=== PATIENT | female | born 1985 | race Two or more races ===

== ENCOUNTER 2023-01-29 10:39 | Outpatient (CLI) | payer BC, SELFPAY | END 2023-01-29 10:40 | disposition home or self-care (01) | PROVIDERS: Visit Provider Registered Nurse | DX: Z01.419 Encounter for gynecological examination (general) (routine) without abnormal findings (principal); N92.0 Excessive and frequent menstruation with regular cycle; N64.52 Nipple discharge; E66.9 Obesity, unspecified; Z13.1 Encounter for screening for diabetes mellitus | CPT/HCPCS: 84146; 84443 ==

== ENCOUNTER 2023-02-09 17:00 | Outpatient (CLI) | payer BC, SELFPAY ==
--- NOTE | 2023-02-09 17:00 | US_ITS ---
Patient: TONIE RUSSO Facility:?[facility] Patient ID:?[id number] Site Patient ID:?[id number] Site :?1985 Study:?US-Pelvis TA/TV-02/09/2023 6:07:15 PM Ordering Physician:?LUDWIG BLANCHARD Final Report: CLINICAL HISTORY: Excessive and frequent menstruation TECHNIQUE: Real time, gayle scale images were acquired of the pelvis using a transabdominal and transvaginal approach. Color Doppler analysis was performed of the ovaries. FINDINGS: The uterus measures 9.2 x 4.2 x 4.7 centimeters endometrium measures 9 millimeters. Right ovary measures 3.3 x 2.4 x 2.4 centimeters. Left ovary measures 3.4 x 1.3 x 1.4 centimeters. section, with fluid or hypoechoic scarring near the lower uterine segment. IMPRESSION: 1. Endometrium measures 9 millimeter. scar with hypoechoic fluid or scarring near the lower uterine segment Dictated by Kate Fritz MD @ 02/10/2023 7:16:33 AM Signed by:?Kate Fritz MD @02/10/2023 7:16:33 AM (Electronic Signature)
== END 2023-02-09 17:01 | disposition home or self-care (01) ==
LOC: US 17:01
PROVIDERS: Visit Provider Registered Nurse
DX: N92.0 Excessive and frequent menstruation with regular cycle (principal); R93.89 Abnormal findings on diagnostic imaging of other specified body structures
CPT/HCPCS: 76830; 76856

== ENCOUNTER 2023-12-04 08:00 | Outpatient (CLI) | payer BC, SELFPAY | END 2023-12-04 08:01 | disposition home or self-care (01) | PROVIDERS: Visit Provider Registered Nurse | DX: N97.9 Female infertility, unspecified (principal); F90.9 Attention-deficit hyperactivity disorder, unspecified type | CPT/HCPCS: 82670; 83001; 84144; 84146; 84443 ==

== ENCOUNTER 2023-12-23 08:05 | Outpatient (CLI) | payer BC, SELFPAY | END 2023-12-23 08:06 | disposition home or self-care (01) | LOC: NFLDREF 12-25 09:06 | PROVIDERS: Visit Provider Registered Nurse | DX: N97.9 Female infertility, unspecified (principal) | CPT/HCPCS: 83520; 84144 ==

== ENCOUNTER 2024-01-08 08:48 | Outpatient (CLI) | payer BC, SELFPAY ==
--- NOTE | 2024-01-08 09:15 | CRLHL7_ITS ---
For Patients: As a result of the Century Cures Act, medical imaging exams and procedure reports are released immediately into your electronic medical record. You may view this report before your referring provider. If you have questions, please contact your health care provider. Indication: Infertility Technique: Routine hysterosalpingogram performed. Fluoroscopic time 37 seconds. IMPRESSION: Normal patency of the fallopian tubes. No endometrial filling defect. Normal exam. Dictated by Dawit Mckoy MD @ 01/08/2024 3:05:21 PM (Electronically Signed)
--- NOTE | 2024-01-08 09:43 | PM.PROC ---
Procedure Note Time Seen by Provider: 09:43 Date Seen: 01/08/24 Date of procedure: 01/08/24 Will [facility] bill your pro fee for this procedure?: Yes Procedure: PREPROCEDURE DIAGNOSIS: Infertility POSTPROCEDURE DIAGNOSIS: 1. Infertility 2. Patent fallopian tubes bilaterally. NAME OF PROCEDURE: Hysterosalpingogram. ANESTHESIA: None. COMPLICATIONS: None. PROCEDURE: After obtaining verbal consent, the patient was placed in the dorsal lithotomy position on the x-ray table. An open-sided bivalve speculum was introduced into the vagina and the cervix easily visualized. The cervix and vagina were then prepped with Betadine. Anterior lip of the cervix was grasped with a single-tooth tenaculum for traction. Os binder/cervical dilator used: No. A balloon tipped double-lumen catheter was then gently inserted through the cervical opening into the uterine cavity to the level of the fundus. The balloon was insufflated with 3 mL of air. The tenaculum and speculum were removed. The patient was repositioned in the supine position, covered, and the radiologist was called to the room. A hysterosalpingogram was then performed. A total of 6 cc of Optiray 300 water soluble contrast dye was injected through the double-lumen catheter under moderate pressure. There was immediate fill of the uterine cavity to the cornua and immediate fill of both fallopian tubes with free spillage of dye from both sides. The balloon was deflated. The catheter was removed. The patient tolerated the procedure well, though she did have moderate cramping discomfort during and just after the procedure. She was discharged to home in stable condition and make an appointment with her physician to review all of her lab results and procedure results.
== END 2024-01-08 08:49 | disposition home or self-care (01) ==
LOC: RAD 08:49
PROVIDERS: Visit Provider Obstetrics & Gynecology
DX: N97.9 Female infertility, unspecified (principal)
CPT/HCPCS: 58340; 74740; A4649; Q9967

== ENCOUNTER 2024-02-17 10:51 | Outpatient (CLI) | payer BC, SELFPAY | END 2024-02-17 10:52 | disposition home or self-care (01) | LOC: NFLDREF 10:51 | PROVIDERS: Visit Provider Registered Nurse | DX: Z13.220 Encounter for screening for lipoid disorders (principal); R30.0 Dysuria | CPT/HCPCS: 80061; 87086; 87624 ==

== ENCOUNTER 2025-03-14 09:58 | Outpatient (CLI) | payer BC, SELFPAY | END 2025-03-14 09:59 | disposition home or self-care (01) | LOC: NFLDREF 10:00 | PROVIDERS: Visit Provider Obstetrics & Gynecology | DX: O03.9 Complete or unspecified spontaneous abortion without complication (principal) | CPT/HCPCS: 84702 ==

== ENCOUNTER 2025-03-22 14:36 | Outpatient (CLI) | payer BC, SELFPAY | END 2025-03-22 14:37 | disposition home or self-care (01) | LOC: NFLDREF 03-27 08:08 | PROVIDERS: Visit Provider Obstetrics & Gynecology | DX: O03.9 Complete or unspecified spontaneous abortion without complication (principal) | CPT/HCPCS: 84702 ==

== ENCOUNTER 2025-05-29 20:54 | Emergency (ER) | payer BC, SELFPAY ==
--- OUTSIDE RECORDS SUMMARY | 2025-05-29 20:57 | XMS_ITS | Clinical Summary ---
Author Organization [employer] [facility] Address [address] [place] [address] Care Team Providers Care Stuffer Name Role Phone Levon Blancas Primary Care Provider [phone] Allergies No known active allergies Medications MedicationSigDispense QuantityRefillsLast FilledStart DateEnd DateStatus multivitamin therapeutic (THERAGRAN; ONCOVITE) tablet Take 1 Tablet by mouth once daily.Active levothyroxine 50 mcg tablet TAKE 1 TABLET BY MOUTH 30 MINUTES BEFORE EATING EVERY GDBBINW44/16/2025Active lisdexamfetamine (Vyvanse) 20 mg capsule Indications:Attention deficit disorder (ADD) without hyperactivityTake 1 Capsule (20 mg) by mouth once daily. 30 Capsule 5Active lisdexamfetamine (VYVANSE) 20 mg capsule Indications:Attention deficit disorder (ADD) without hyperactivityTake 1 Capsule (20 mg) by mouth once daily in the morning. 30 Capsule 5Active lisdexamfetamine (VYVANSE) 20 mg capsule Indications:Attention deficit disorder (ADD) without hyperactivityTake 1 Capsule (20 mg) by mouth once daily in the morning. 30 Capsule 5Active Active Problems ProblemNoted DateDiagnosed DateFibroid gxakqb7401/07/2017Recurrent UTI01/07/2017 Haploibdrhit98/21/2016 Encounters DateTypeDepartmentCare MfvsYevppdysjyv45/20/2025Orders Only [facility] Scanner <No scans attached>04/03/2025Orders Only [facility] Scanner <No scans attached>04/03/2025Orders Only [facility] Scanner 1 scan: (1-Ord) INCOMING RECORDS-LABS, AMBULATORY CLINICS, 51 Orders Only [facility] Scanner 1 scan: (1-Ord) INCOMING RECORDS-, [facility] , 04/03/2025from Last 3 Months Immunizations ImmunizationAdministration DatesNext DueINFLUENZA, IIV3 PF (AGE >= 6 MO) 03/06/2014,03/31/2013,03/24/2012Influenza, IIV3 (Age >=3 years)03/09/2019 Influenza, VZH700/01/2023Influenza,CCIIV4 PRESERV FREE03/10/2022Tdap107/23/2020, 08/23/2019,08/25/2014Typhoid (injectable)04/08/2019 Family History Medical HistoryRelationNameCommentsHeart DiseaseFatherHypertensionFather HyperlipidemiaMotherAnesthesia Malignant HyperthermiaNo Family HistoryBlood DiseaseNo Family HistoryRelationNameStatusCommentsFatherAliveMotherAlive Social History Tobacco UseTypesPacks/DayYears UsedDateSmoking Tobacco: NeverPassive Smoke Exposure: NeverSmokeless Tobacco: Never Tobacco Cessation:Counseling Given: Yes Alcohol UseStandard Drinks/WeekCommentsYes0 (1 standard drink = 0.6 oz pure alcohol)occPHQ-2AnswerDate RecordedPHQ-2 TOTAL USOMF747Social ConnectionsAnswerDate RecordedDo you often feel lonely or isolated from those around you?Financial Resource StrainAnswerDate RecordedDifficulty of Paying Living Zcisaqqi478/29/2025Difficulty of Paying Living ExpensesNot on file 11/10/2024Food InsecurityAnswerDate RecordedDo you worry your food will run out before you are able to buy more?Transportation NeedsAnswerDate RecordedDoes lack of transportation keep you from medical appointments?1 11/10/2024Does lack of transportation keep you from work, meetings or getting things that you need?Housing StabilityAnswerDate RecordedWhat is your housing situation today?UtilitiesAnswerDate RecordedDo you have trouble paying for utilities (for example, heat, electricity, water, phone)?1 11/10/2024CommentsNoSex and Gender InformationValueDate RecordedSex Assigned at BirthNot on fileLegal OtfUcxqal79/02/2019 4:03 PM CDTGender Identity Not on fileSexual OrientationNot on fileOccupationIndustryJob Start DateJob End DateRNNot on fileNot on fileNot on file Last Filed Vital Signs Vital SignReadingTime TakenCommentsBlood Tngjnfic800/85011/10/2024 9:29 AM CDT Olkvv863011/10/2024 9:29 AM PXYMeqcfylekey14.7 ??C (98 ??F)12/24/2023 5:41 PM CDT Respiratory Cnks814812/24/2023 5:41 PM CDTOxygen Gmocpviugi281%11/10/2024 9:29 AM CDTInhaled Oxygen Concentration--Xvkdwz17.8 kg (165 lb)11/10/2024 9:29 AM CDT Squxgm490.4 cm (5')11/10/2024 9:29 AM CDTBody Mass Index32.22011/10/2024 9:29 AM CDT Plan of Treatment Health MaintenanceDue DateLast DoneCommentsHIV for age 15-Hepatitis C screening for age 18-Hepatitis B series for 19+ (1 of 3 - 19+ 3- dose series)08/23/2006HPV series for age 9-45 (1 - 3-dose SCDM series)08/23/2014 COVID-19 vaccine series ( - 2024- season)2025Influenza Vaccine (#1) 509/01/2023, 03/10/2022, 03/09/2019, Additional history existsBMI (ht and wt on same day) for age 18+, 04/07/2023, 10/31/2021, Additional history existsDepression screening for age 12+, 11/04/2024, 05/13/2024, Additional history existsPap test for age 21-65 709/09/2023, 02/17/2024, 03/15/2019, Additional history existsTetanus pknamho18/08/975726/01/2021, 08/23/2019, 08/25/2014Pneumococcal series for age 6-49Aged OutNo longer eligible based on patient's age to complete this topic Procedures Procedure NamePriorityDate/TimeAssociated DiagnosisCommentsSCAN CORRESP- LABORATORY YUMVDIF6404/03/2025 12:00 AM CDT SCAN CORRESP-LABORATORY WTEHYSV5504/03/2025 12:00 AM CDT SCAN CORRESP-LABORATORY TKKYNML2304/03/2025 12:00 AM CDT SCAN CORRESP-NLNDIIM7504/03/2025 12:00 AM CDT HPV HIGH CYPVDveefmz48/04/2024 10:55 AM CDT from Last 3 Months or Most Recently Relevant to Health Maintenance Results * SCAN CORRESP-LABORATORY RESULTS (04/03/2025 12:00 AM CDT) Only the most recent of3 resultswithin the time period is included. Narrative Authorizing ProviderResult TypeResult StatusScannerOTHERFinal Result * SCAN CORRESP-IMAGING (04/03/2025 12:00 AM CDT)Anatomical RegionLaterality ModalityOther Narrative Authorizing ProviderResult TypeResult StatusScannerOTHERFinal Result * HPV HIGH RISK (02/17/2024 10:55 AM CDT)ComponentValueRef RangeTest Method Analysis TimePerformed AtPathologist SignatureTYPE 16NegativeNegative 02/23/2024 11:26 AM CDF[facility]-CENTRAL LABORATORYTYPE 18 TmestqobWzasprpw85/10/2024 11:26 AM CDTALPH[facility] LAB[facility]-CENTRAL LABORATORYOTHER HIGH RISK JKZFRClvcovfqVpcofymk04/10/2024 11:26 AM CDFORT [facility] LABORATORYCENTRAL LABORATORYSpecimen (Source)Anatomical Location / LateralityCollection Method / VolumeCollection TimeReceived TimeOther (Cervical)02/17/2024 10:55 AM CDT02/19/2024 5:04 PM CDT Narrative [facility]-CENTRAL LABORATORY - 02/23/2024 11:26 AM CDT HPV types 16, 18, 31, 33, 35, 39, 45, 51, 52, 56, 58, 59, 66 and 68 DNA were undetectable or below the pre-set threshold. Methodology: Abbey Xin 4800 HPV Test Authorizing ProviderResult TypeResult StatusChabby Brown NPMICROBIOLOGY Final ResultPerforming OrganizationAddressCity/State/ZIP CodePhone Number [facility] [address] [place] [phone], from Last 3 Months or Most Recently Relevant to Health Maintenance Insurance Care Teams Team MemberRelationshipSpecialtyStart DateEnd Date Levon [place] [address] PCP - GeneralFamily Practice11/10/24
--- OUTSIDE RECORDS SUMMARY | 2025-05-29 20:57 | XMS_ITS | Clinical Summary ---
Author Organization [facility] [place] Address [address] [place] [address] Care Team Providers Care Director Experimental Medicine Name Role Phone Jonathan, [facility] Gambier Primary Care Provider Allergies No known active allergies Medications MedicationSigDispense QuantityRefillsLast FilledStart DateEnd DateStatus multivitamin, therapeutic (THERA-VIT) TABS tablet Take 1 tablet by mouth dailyActive nitroFURantoin, macrocrystal-monohydrate, (MACROBID) 100 MG capsule Indications:Postcoital UTITake one pill after sexual intercourse to prevent UTI 30 capsule Active levonorgestrel-ethinyl estradiol (FALMINA) 0.1-20 MG-MCG tablet Indications:Encounter for initial prescription of contraceptive pillsTake 1 tablet by mouth daily Please schedule an office visit for further refills. 84 tablet 11/16/2018Active Active Problems ProblemNoted DateDiagnosed DateRecurrent UTI01/07/2017Fibroid sxgizx3201/07/2017 Fynehgmpdkog70/21/2016 Resolved Problems ProblemNoted DateDiagnosed DateResolved DateThoracolumbar back pain01/19/2015 03/09/2015 Immunizations ImmunizationAdministration DatesNext DueInfluenza (IIV3) PF03/06/2014,03/31/2013 ,03/24/2012TDAP (Adacel,Boostrix)08/25/2014TDAP Vaccine (Adacel)08/25/2014 Family History Medical HistoryRelationCommentsHypertensionFatherUnknown/AdoptedFatherRelation StatusCommentsFather Social History Tobacco UseTypesPacks/DayYears UsedDateSmoking Tobacco: NeverSmokeless Tobacco: NeverAlcohol UseStandard Drinks/WeekCommentsYes0 (1 standard drink = 0.6 oz pure alcohol)socialPHQ-2AnswerDate RecordedPHQ-2 Jmkib226Adolescent Education AnswerDate RecordedGetting School Help NeededNot on file3 CommentsUnknownSex and Gender InformationValueDate RecordedSex Assigned at Not on fileLegal MryUaorpp58/30/2015 8:38 AM CDTGender IdentityNot on fileSexual OrientationNot on file Last Filed Vital Signs Vital SignReadingTime TakenCommentsBlood Fpkgnnai599/8511/02/2023 11:30 AM HORTICULTURAL FARM MANAGER Lefkv6578 11:30 AM DPUChwkmnzcjfh08.1 ??C (97 ??F)04/23/2023 9:22 AM HORTICULTURAL FARM MANAGER Respiratory Dewe853106/23/2022 9:22 AM CSTOxygen Pbjggalkde319%04/23/2023 11:30 AM CSTInhaled Oxygen Concentration--Yqxzyt01.1 kg (170 lb)01/03/2021 5:14 AM CDT Wtonts576.4 cm (5')02/04/2018 7:51 AM CDTBody Mass Index33. 7:51 AM CDT Plan of Treatment Health MaintenanceDue DateLast DoneCommentsADVANCE CARE QVZURQJW72/11/1988ANNUAL REVIEW OF HM RYDVMH06 1987HIV LAJVFSOVM61/11/2003HEPATITIS B VACCINE (1 of 3 - 19+ 3-dose series)08/23/2006PAP01/07/, 08/02/2013YEARLY PREVENTIVE VISIT, 01/07/2017, 08/25/2014PHQ-2 (once per calendar year), 01/07/2017, 12/31/2016COVID-19 VACCINE ( - 2024- season)/09/2020, 06/27/2020INFLUENZA VACCINE (#1)2025 02/20/2023, 03/10/2022, 02/28/2021, Additional history existsDIABETES SCREENING 611/02/2023, 02/07/2018, 07/31/2017, Additional history exists DTAP/TDAP/TD VACCINE (5 - Td or Tdap)112/01/2021, 08/23/2019, 08/25/2014, Additional history existsZOSTER VACCINE (1 of 2)08/23/2037HEPATITIS C UUCRAWTZCDrkbdqyxd61/26/2016HPV VACCINE (No Doses Required)CompletedMENINGITIS VACCINEAged OutNo longer eligible based on patient's age to complete this topic PNEUMOCOCCAL VACCINE: PEDIATRICS (0 to 5 YEARS) AND AT-RISK PATIENTS (6 to 49 YEARS)Aged OutNo longer eligible based on patient's age to complete this topic Procedures Procedure NamePriorityDate/TimeAssociated DiagnosisCommentsBASIC METABOLIC PANEL STAT106/23/2022 9:28 AM HORTICULTURAL FARM MANAGER PAP IMAGED THIN LAYER WMCUNWZpzkwfv02/26/2017 11:00 AM CDT Routine history and physical examination of adult Screen for STD (sexually transmitted disease) HEPATITIS C PIKOWRMVVxdvkke09/26/2016 11:59 AM CDT Contact with and (suspected) exposure to viral hepatitis from Last 3 Months or Most Recently Relevant to Health Maintenance Results * (ABNORMAL) Basic metabolic panel (04/23/2023 9:28 AM HORTICULTURAL FARM MANAGER)ComponentValueRef RangeTest MethodAnalysis TimePerformed AtPathologist WlkxqawshPkmcav749749 - 145 mmol/L106/23/2022 10:11 AM [facility] LABORATORYComment:Reference intervals for this test were updated on 03/10/2023 to more accurately reflect our healthy population. There may be differences in the flagging of prior results with similar values performedwith this method. Interpretation of those prior results can be made in the context of the updated reference intervals. Potassium3.73.4 - 5.3 mmol/L106/23/2022 10:11 AM [facility] POGFSHQJTVRxdfthea22498 - 107 mmol/L106/23/2022 10:11 AM [facility] LABORATORYCarbon Dioxide (CO2)2322 - 29 mmol/L106/23/2022 10:11 AM [facility] LABORATORYAnion Cyq113 - 15 mmol/L106/23/2022 10:11 AM [facility] LABORATORYUrea Nitrogen9.36.0 - 20.0 mg/dL04/23/2023 10:11 AM [facility] LABORATORYCreatinine0.690.51 - 0.95 mg/dL04/23/2023 10:11 AM [facility] LABORATORYGFR Estimate>90>60 mL/min/1.09o47404/23/2023 10:11 AM [facility] Calcium9.08.6 - 10.0 mg/dL04/23/2023 10:11 AM [facility] QLWTWGWUPRIesybwk996(H)70 - 99 mg/dL04/23/2023 10:11 AM [facility] LABORATORYSpecimen (Source)Anatomical Location / LateralityCollection Method / VolumeCollection TimeReceived Time BloodBLOOD SPECIMEN / UnknownVenipuncture / Jdljqoy7704/23/2023 9:28 AM HORTICULTURAL FARM MANAGER 04/23/2023 9:35 AM HORTICULTURAL FARM MANAGER Narrative Authorizing ProviderResult TypeResult StatusPaul Abe Sanchez MDLAB - BLOOD ORDERABLESFinal ResultPerforming OrganizationAddressCity/State/ZIP CodePhone Number [facility] [address] [facility] (1st floor, no room number) [place] [address], [facility] [phone] * Pap imaged thin layer screen reflex to HPV if ASCUS - recommend age 25 - 29 (01/07/2017 11:00 AM CDT)ComponentValueRef RangeTest MethodAnalysis Time Performed AtPathologist SignaturePAPNILCOPATHCopath Report Patient Name: NAYELI CHEATHAM MR#: [id number] Specimen #: [id number] Collected: 01/07/2017 Received: 01/08/2017 Reported: 01/09/2017 15:20 Ordering Phy(s): ERIKA SAM For improved result formatting, select 'View Enhanced Report Format' under Linked Documents section. SPECIMEN/STAIN PROCESS: Pap imaged thin layer prep screening (Surepath, FocalPoint with guided screening) ? Pap-Cyto x 1, Pap with reflex to HPV if ASCUS x 1 SOURCE: Cervical, endocervical Pap imaged thin layer prep screening (Surepath, FocalPoint with guided screening) SPECIMEN ADEQUACY: Satisfactory for evaluation. -Transformation zone component present. CYTOLOGIC INTERPRETATION: Negative for intraepithelial lesion or malignancy Electronically signed out by: CHETAN Hess (ASCP) Processed and screened at [facility], [facility] CLINICAL HISTORY: LMP: 12/26/2016 Papanicolaou Test Limitations: ??Cervical cytology is a screening test with limited sensitivity; regular screening is critical for cancer prevention; Pap tests are primarily effective for the diagnosis/prevention of squamous cell carcinoma, not adenocarcinomas or other cancers. TESTING LAB LOCATION: [address] ??[address] COLLECTION SITE: Client: ??[facility] Location: CRFP (R)COPATHSpecimen (Source)Anatomical Location / Laterality Collection Method / VolumeCollection TimeReceived TimeCytologic material (specimen)01/07/2017 11:00 AM CDT01/08/2017 9:11 AM CDT Narrative Authorizing ProviderResult TypeResult StatusErika MACK - OPTIME CLINICAL SPECIMENFinal ResultPerforming OrganizationAddressCity/State/ZIP Code Phone Number [facility] * Hepatitis C antibody (02/08/2016 11:59 AM CDT)ComponentValueRef RangeTest MethodAnalysis TimePerformed AtPathologist SignatureHepatitis C Antibody Nonreactive Assay performance characteristics have not been established for newborns, infants, and children NRUNVERM[facility] E[facility] BANKSpecimen (Source)Anatomical Location / LateralityCollection Method / VolumeCollection TimeReceived TimeBlood specimen (specimen)02/08/2016 11:59 AM CDT02/08/2016 12:01 PM CDT Narrative Authorizing ProviderResult TypeResult StatusPaty MACK - BLOOD ORDERABLESFinal ResultPerforming OrganizationAddressCity/State/ZIP Code Phone Number [facility] [address] [place], [place] [address] from Last 3 Months or Most Recently Relevant to Health Maintenance Insurance Care Teams Team MemberRelationshipSpecialtyStart [address] [address] PCP - Lkwbnbf32/9/23
--- OUTSIDE RECORDS SUMMARY | 2025-05-29 20:57 | XMS_ITS | Clinical Summary ---
Author Organization [facility] Address [address] [place] [address] Care Team Providers Care Caster Investment Casting Name Role Phone Unavailable Primary Care Provider Unavailabl e Source Comments You are receiving this document as you are listed as the primary care provider,follow-up provider, or the patient has been referred to you for consultation.This is in compliance with the Medicare andGrant Hospitalcaid EHR Incentive Program,which states Providers who transition their patient to another setting of careor provider of care or refers their patient to another provider of care shouldprovide summary care record for each transition of care or referral. [facility] Allergies No known active allergies Medications MedicationSigDispense QuantityRefillsLast FilledStart DateEnd DateStatus ibuprofen (MOTRIN) 200 MG tablet Take 1-2 Tablets (200-400 mg) by mouth every 4 hours as needed for Pain.Active acetaminophen (TYLENOL) 325 MG tablet Take 325-650 mg by mouth every 4 hours as needed for Pain.Active methylPREDNISolone (MEDROL 21 TABLET DOSEPACK) 4 MG tablet Indications:Complex tear of lateral meniscus of left knee as current injury, initial encounterTake 6 pills day 1, 5 pills day 2, 4 pills day 3, 3 pills day 4, 2 pill day 5, 1 pill day 6 21 Tablet 08/17/2019Active Additional Information Patient not taking.Reported on 08/26/2022 Norethindrone, Contraceptive, (MICRONOR) 0.35 MG tablet Take 1 Tablet (0.35 mg) by mouth once.07/07/2022ctive Social History Tobacco UseTypesPacks/DayYears UsedDateSmoking Tobacco: Never Assessed CommentsNoSex and Gender InformationValueDate RecordedSex Assigned at BirthNot on fileLegal XbbZbbnnd84/05/2020 4:04 PM CSTGender IdentityNot on fileSexual OrientationNot on file Last Filed Vital Signs Vital SignReadingTime TakenCommentsBlood Arrqvodi353/9308/26/2022 8:22 AM CDT Mueua256708/26/2022 8:22 AM OPIRpncwhromnh26.8 ??C (98.2 ??F)08/26/2022 8:22 AM CDTRespiratory Seyj859508/26/2022 8:22 AM CDTOxygen Ydelbuxilx864%08/26/2022 8:22 AM CDTInhaled Oxygen Concentration--Blilmc23 kg (150 lb)07/25/2019 8:51 AM FAMILY HEALTH NURSE PRACTITIONER Tgekgo804.4 cm (5')07/25/2019 8:51 AM CSTBody Mass Index29.29007/25/2019 8:51 AM FAMILY HEALTH NURSE PRACTITIONER Plan of Treatment Health MaintenanceDue DateLast DoneCommentsCervical Cancer Screening Due 1987Hep C Screening (Preventive Services)1987HIV Screening (Preventive Services)2003Adult Preventive Visit08/23/2005HepB Vaccine (1) 08/23/2006COVID-19 Vaccine (1 - 2024- season)2025Influenza Vaccine (#1) 509/, 03/09/2019DTaP/Tdap/Td Vaccine (4 - Tdap)05/22/2031 05/22/2021, 08/23/2019, 08/25/2014Zoster/Shingles Vaccine (1 of 2)08/23/2037HPV Vaccine (No Doses Required)CompletedHepA VaccineAged OutNo longer eligible based on patient's age to complete this topicHib VaccineAged OutNo longer eligible based on patient's age to complete this topicIPV (Polio) VaccineAged OutNo longer eligible based on patient's age to complete this topicMCV4 VaccineAged OutNo longer eligible based on patient's age to complete this topicMeningococcal B VaccineAged OutNo longer eligible based on patient's age to complete this topicPneumococcal VaccineAged OutNo longer eligible based on patient's age to complete [place] [address]
[2025-05-29 21:07] VITALS: BP 146/84; PULSE 74; RESP 18; TEMP 36.7; O2SAT 100; BMI 33.4
--- NOTE | 2025-05-29 21:57 | CRLHL7_ITS ---
For Patients: As a result of the Century Cures Act, medical imaging exams and procedure reports are released immediately into your electronic medical record. You may view this report before your referring provider. If you have questions, please contact your health care provider. INDICATION: Right lower quadrant Pain TECHNIQUE: Transabdominal scanning with a linear transducer and graded compression was performed in the right lower quadrant. COMPARISON: None FINDINGS: The appendix cannot be visualized due to overlying bowel gas. No fluid collections or ascites is seen in the right lower quadrant. IMPRESSION: 1. The appendix cannot be visualized by sonography. Dictated by: Reymundo Oconnell MD @ 05/29/2025 23:58:47 (Electronically Signed)
--- NOTE | 2025-05-29 21:57 | CRLHL7_ITS ---
For Patients: As a result of the Century Cures Act, medical imaging exams and procedure reports are released immediately into your electronic medical record. You may view this report before your referring provider. If you have questions, please contact your health care provider. INDICATION: Right lower quadrant pain TECHNIQUE: Ultrasound OB pelvis transvaginal. Real time gayle scale imaging of the pelvis was performed. Color and Duplex Doppler images were obtained. COMPARISON: None FINDINGS: Gestational sac: Sonographic imaging demonstrates a single intrauterine gestation with a normal appearance. Small subchorionic hemorrhage is noted.The amount of fluid within the sac appears appropriate for gestational age. Fetus: The embryo demonstrates a regular cardiac rate measuring 102 beats per minute. The embryo`s crown rump length measurement of 4 mm corresponds to a gestational age of 6 weeks, 1 day. There are no gross abnormalities noted within the embryo at this early state of development. There is a normal appearing yolk sac. Placenta: The placenta has not yet developed. Pelvis: The visualized cervix is closed with multiple small nabothian cysts seen. The visualized myometrium appears normal. There is a simple cyst present within the right ovary measuring 5.3 x 4 cm. The left ovary is unremarkable in appearance. Arterial blood flow is seen within the right ovary. Doppler exam of the left ovary is limited. No significant ascites noted. IMPRESSION: 1. Single viable intrauterine with an estimated gestational age of 6 weeks, 1 day. 2. A small subchorionic hemorrhage is noted. 3. Large simple cyst is present within the right ovary. Dictated by Reymundo Oconnell MD @ 05/30/2025 12:01:45 AM Dictated by: Reymundo Oconnell MD @ 05/30/2025 00:01:57 (Electronically Signed)
--- NOTE | 2025-05-29 22:17 | ED.GENADULT ---
HPI - General Adult General Chief complaint: Abdominal Pain Stated complaint: 6 weeks / cramping Time Seen by Provider: 05/29/25 21:39 History of Present Illness HPI narrative: 39-year-old female presents to the emergency department for evaluation of right lower quadrant and pelvic pain. Started yesterday, initially mild and intermittent, now more persistent today and into this evening. Does have some nausea and did vomit x1 yesterday but she is 6 and half weeks and states that she has had vomiting for the last week, did not attribute it to the source of the pain. No hematuria, no dysuria. No pelvic bleeding. She is 6 weeks and 6 days with an LMP of 10/28. No fevers, no trauma or injury. No history of kidney stones. She has had a prior and has also had a prior cholecystectomy but does still have her appendix. No stool changes, no blood in her stools. Try taking some Tylenol and use a heating pad with some temporary improvement, but now no longer helping. She admits that she is anxious about the pain. Blood type is A positive. This is confirmed in prior records. Pain aching constant, does not radiate. Not affected by movement. Past medical history notable for prior cholecystectomy 15 years ago, uncomplicated , obesity. Home meds 50 mcg of levothyroxine, no longer using her ADHD stimulant while . Allergies to adhesives, latex and shellfish. Nonsmoker. ROS notable for the abdominal symptoms only, otherwise denies times 12 systems. Related Data Home Medications ?Medication ?Instructions ?Recorded ?Confirmed docosahexaenoic acid 200 mg mg PO 02/17/24 03/14/25 capsule ( DHA) iron,carbonyl 65 mg-vitamin C 125 1 tab PO QDAY 03/02/25 03/14/25 mg tablet,delayed release (Vitron-C) levothyroxine 50 mcg tablet 50 mcg PO QDAY 03/02/25 03/14/25 lisdexamfetamine 20 mg capsule 20 mg PO DAILY 03/14/25 03/14/25 Allergies Allergy/AdvReac Type Severity Reaction Status Date / Time adhesive Allergy Unknown Blister Verified 03/14/25 09:39 latex Allergy Unknown Unknown Verified 03/14/25 09:39 shellfish derived AdvReac Intermediate Unknown Verified 03/14/25 09:39 [facility] Medical History History of recurrent urinary tract infection ?Z87.440 - Personal history of urinary (tract) infections (ICD-10) History of uterine fibroid (2018) ?Z86.018 - Personal history of other benign neoplasm (ICD-10) History of miscarriage ?Z87.59 - Personal history of other complications of , childbirth and the puerperium (ICD-10) Gestational hypertension (2021) ?O13.9 - Gestational [-induced] hypertension without significant proteinuria, unspecified trimester (ICD-10) Gestational diabetes mellitus (GDM) (05/15/21) ?O24.419 - Gestational diabetes mellitus in , unspecified control (ICD-10) Surgical History History of ovarian cystectomy (2017) ?Z98.890 - Other specified postprocedural states (ICD-10) ?Z87.42 - Personal history of other diseases of the female genital tract (ICD-10) Status post repair of anterior cruciate ligament (11/02/19) ?Z98.890 - Other specified postprocedural states (ICD-10) Status post delivery (07/30/21) ?Z98.891 - History of uterine scar from previous surgery (ICD-10) History of cholecystectomy (2012) ?Z90.49 - Acquired absence of other specified parts of digestive tract (ICD-10) Family History Father High blood pressure Heart disease Mother High cholesterol Osteoporosis High blood pressure Aunt Lupus Thyroid disease Social History What is your current living situation?: I presently have a place to live Problems where you live: no known problems In the past 12 months, utilities in danger of being shut off: no In past 12 months, lack of transportation kept you from medical appts, meetings, work, or getting things needed for daily living: no In the past 12 mos, have been you worried that your food would run out before you had money to buy more?: never true In the past 12 mos, the food you bought just didn't last and you didn't have money to buy more?: never true Smoking Status: Never smoker Second hand tobacco smoke exposure: No How often do you have a drink containing alcohol: never AUDIT-C Alcohol total score: 0 Non-prescribed substance use: denies use How often does anyone, including family, friends and others, physically hurt you: never How often does anyone, including family, friends and others, insult or talk down to you: never How often does anyone, including family, friends and others, threaten you with harm: never How often does anyone, including family, friends and others, scream or curse at you: never Exam Const: Vital Signs, click to edit/add: Vital Signs - 24 hr 05/29/25 21:07 Temperature 98.0 F Pulse Rate [Left P ulse Oximeter] 74 Respiratory Rate 18 Blood Pressure [Ri ght Upper Arm] 146/84 H Pulse Oximetry 100 Oxygen Delivery Me thod Room Air Documenting provider has reviewed patient's vital signs: yes Common normals: no apparent distress and alert General appearance: cooperative and well kempt HENMT: Common normals: normocephalic Head and scalp: normocephalic Face and sinus: normal facial exam Eye: Common normals: conjunctivae normal General eye: normal appearance of both eyes Conjunctiva: conjunctiva(e) normal Neck & C-Spine: Common normals: full ROM and no lymphadenopathy General: normal visual inspection Resp: Common normals: normal respiratory effort, no use of accessory muscles and clear to auscultation bilaterally Effort & inspection: able to speak in complete sentences Auscultation: clear to auscultation bilaterally Cardio: Common normals: regular rate, regular rhythm, S1 normal heart sound, S2 normal heart sound and no murmurs Rate: regular rate Rhythm: regular rhythm Heart sounds: S1 normal and S2 normal GI: Common normals: Normal to inspection, nondistended, normoactive bowel sounds present, soft to palpation, no hepatosplenomegaly and no masses Palpation: soft and no hepatosplenomegaly Other: No mass. Bowel sounds are normoactive throughout. She is mildly diffusely tender to the pelvic area and actually more on the left side than the right for me on exam though she had initially endorse the pain on the right side. There is no rebound tenderness, guarding or mass. : Common normals: no CVA tenderness Bladder/kidney exam: no CVA tenderness Back & Pelvis: Common normals: no CVA tenderness Extremity: Common normals: normal to inspection and no pedal edema General: normal exam except as noted Neuro: Common normals: moves all extremities Sensorium/orientation: alert Psych: Common normals: speech normal Appearance: well kempt Attitude: engaged Activity/motor behavior: appropriate eye contact Speech: normal speech Attention/concentration: attention grossly intact Insight: insight good Judgement: judgment good Skin: Common normals: no rashes or lesions noted General skin exam: no rashes or lesions noted Course Course ED Course: 39-year-old female with at 6 weeks 6 days gestation presenting with pelvic pain and cramping, no bleeding. Differential diagnosis including miscarriage, threatened , ectopic , constipation, kidney stone, urinary tract infection, appendicitis, bowel obstruction, amongst many others. Recommended pelvic ultrasound, hCG level, urinalysis, CBC. Blood type noted to be A positive, will not need RhoGAM. Will also get ultrasound of right lower quadrant to try to look for appendicitis though exam was reassuring. Await findings. Reevaluation(s) Time of Reevaluation #1: 00:16 Reevaluation #1: Counseled patient on findings. Appendix was not well seen on ultrasound. Quant is very reassuring. Remainder of blood work does not point towards infection or inflammation that would be suspicious for appendicitis. Exam was more suspicious for pain along the left abdomen and colon area, this certainly could be constipation. There is a small subchorionic hemorrhage seen on pelvic ultrasound, Chance IUP noted. This is overall reassuring. I would like to treat the patient with 2 stool softeners here in the ED and we have extensively discussed alarm symptoms that would warrant re-evaluation like persistent heavy bleeding, bloody stools, persistent vomiting, fever, pain that does localized to the right side as compared to now which is central and leftward on exam. She will keep her follow-up appointment in a few weeks with her OB team. Okay to use Tylenol if the cramping is bothersome. Written instructions are provided, all questions answered. Vital Signs Vital signs: Initial Vital Signs Temperature 98.0 F 05/29/25 21:07 Temperature Source Temporal Artery Scan 05/29/25 21:07 Pulse Rate 74 05/29/25 21:07 Pulse Rhythm Regular 05/29/25 21:07 Respiratory Rate 18 05/29/25 21:07 Blood Pressure 146/84 H 05/29/25 21:07 Blood Pressure Mean 104 05/29/25 21:07 Blood Pressure Position Sitting 05/29/25 21:07 Pulse Oximetry 100 05/29/25 21:07 Oxygen Delivery Method Room Air 05/29/25 21:07 Vital Signs Temperature 98.0 F 05/29/25 21:07 Pulse Rate 74 05/29/25 21:07 Respiratory Rate 18 05/29/25 21:07 Blood Pressure 146/84 H 05/29/25 21:07 Pulse Oximetry 100 05/29/25 21:07 Oxygen Delivery Method Room Air 05/29/25 21:07 Temperature 98.0 F 05/29/25 21:07 Pulse Rate 74 05/29/25 21:07 Respiratory Rate 18 05/29/25 21:07 Blood Pressure 146/84 H 05/29/25 21:07 Pulse Oximetry 100 05/29/25 21:07 Oxygen Delivery Method Room Air 05/29/25 21:07 Medical Decision Making Lab Data Lab results reviewed: Yes I reviewed the patient's lab results Lab results narrative: Excellent hCG level. No signs of leukocytosis, inflammation, abnormal kidney function or bladder infection. Labs: Lab Results 05/29/25 05/29/25 Range/Units 22:10 22:40 WBC 9.65 (4.50-11.00) K/uL RBC 4.07 (4.00-5.20) m/uL Hgb 12.1 (12.0-16.0) gm/dL Hct 36.6 (33.0-51.0) % MCV 90 (80-100) fL MCH 30 (26-34) pg MCHC 33 (32-36) gm/dL RDW Coeff of Rah 12.4 (11.5-15.5) % Plt Count 305 (140-440) K/uL Neut % (Auto) 58.1 (42.0-72.0) % Lymph % (Auto) 31.4 (20-44) % [place] % (Auto) 9.3 (0.0-11.0) % Eos % (Auto) 0.7 (0.0-7.0) % Baso % (Auto) 0.3 (0.0-3.0) % Neut # (Auto) 5.60 (1.7-7.0) K/uL Lymph # (Auto) 3.03 H (0.90-2.90) K/uL [place] # (Auto) 0.90 (0.00-0.90) K/UL Eos # (Auto) 0.07 (0.00-0.50) K/uL Baso # (Auto) 0.03 (0.00-0.30) K/uL Abs Immat Gran (auto) 0.02 (0.00-0.30) K/uL Imm/Tot Granulo (auto) 0.2 % Sodium 132 L (135-149) mmol/L Potassium 3.5 L (3.6-5.1) mmol/L Chloride 105 (96-114) mmol/L Carbon Dioxide 21 (20-32) mmol/L Anion Gap 6 L (7-15) mEq/L BUN 11 (5-24) mg/dL Creatinine 0.6 (0.5-1.5) mg/dL Estimated Creat Clear 92.21 Estimated GFR 118 ml/min Glucose 116 H (60-115) mg/dL Calcium 8.7 (8.4-10.6) mg/dL HCG, Quant 75640.00 mIU/mL Urine Color Yellow (Yellow) Urine Appearance Slightly Cloudy A (Clear) Urine pH 6.5 (5.0-8.5) Ur Specific [place] 1.025 (1.000-1.030) Urine Protein Negative (Negative) Urine Glucose (UA) Negative (Negative) Urine Ketones Trace A (Negative) Urine Blood 1+ A (Negative) Urine Nitrite Negative (Negative) Urine Bilirubin Negative (Negative) Urine Urobilinogen 0.2 (0.2-1.0) Ur Leukocyte Esterase Negative (Negative) Urine RBC 2-5 A (0-2) Urine WBC 0-2 (0-5) Ur Squamous Epith Cells Few (None-Few) Amorphous Sediment Few A (None) Urine Bacteria Few A (None) Urine Mucus Few A (None) Urine HCG, Qual POSITIVE H (Negative) Imaging Data US pelvis: Attestation: I have reviewed the pertinent imaging results. My impression: Chance IUP Radiologist's impression: IMPRESSION: 1. Single viable intrauterine with an estimated gestational age of 6 weeks, 1 day. 2. A small subchorionic hemorrhage is noted. 3. Large simple cyst is present within the right ovary. Dictated by Reymundo Oconnell MD @ 05/30/2025 12:01:45 AM us RLQ abdomen: Attestation: I have reviewed the pertinent imaging results. My impression: I only see bowel, cannot distinctly tell the location of the appendix Radiologist's impression: FINDINGS: The appendix cannot be visualized due to overlying bowel gas. No fluid collections or ascites is seen in the right lower quadrant. IMPRESSION: 1. The appendix cannot be visualized by sonography. Dictated by: Reymundo Oconnell MD @ 05/29/2025 23:58:47 Discharge Plan Discharge Clinical Impression: Abdominal pain in Patient Disposition: Home, Self-Care Condition: Stable Instructions: Abdominal Pain in (ED) Additional Instructions: As we discussed, your appendix was not well seen on the ultrasound today but we do not see any surrounding inflammation, free fluid and your blood work does not reflect any infection. I think it is safe to continue waiting to see on this and determining if further workup needs to be performed if your symptoms change. For me, you are more tender on the left side I suspect your pain is actually from constipation. You were given 2 stool softeners here in the emergency department. I recommend that you continue on [id number] Colace once daily for the next few weeks. Your pain could be from implantation and cramping related to this. There was a single live baby seen on the inside of the uterus which is ideal. Your blood work is also very reassuring for a healthy . There was a small subchorionic hemorrhage seen, many pregnancies have these an often go on to have no complications but if you have a slight amount of spotting, that could be related to that hemorrhage. If you have severe bleeding, please come back to the emergency room but if you have light spotting, please just be in contact with your Ob provider about when they want to see you to see how things are going. If you run high fever, have persistent vomiting, bloody stools or other signs of complication, please be re-evaluated. At this time it does appear as though it would be safe for you to use stool softeners and or Tylenol to help with your symptoms. Keep your pending appointment in a few weeks with your OB team. Activity Level: No Restrictions Discharge Diet: Regular Prescriptions: No Action DHA 200 mg capsule PO levothyroxine 50 mcg tablet 50 mcg PO QDAY Vitron-C 65 mg iron- 125 mg tablet,delayed release (DR/EC) 1 tab PO QDAY lisdexamfetamine 20 mg capsule 20 mg PO DAILY Follow Up/Referrals: Provider,Not a Local [Primary Care Provider, Family Practice] Stand Alone Forms: [facility] Info Instructions
[2025-05-29 22:20] LABS: Hematocrit* 36.6 % (33.0-51.0); Hemoglobin* 12.1 gm/dL (12.0-16.0); Immature Granulocytes Abs Auto 0.02 K/uL (0.00-0.30); Immature Granulocytes Pct Auto 0.2 %; Lymphocytes Absolute Auto 3.03 K/uL (0.90-2.90); Mean Corpuscular HGB Conc 33 gm/dL (32-36); Mean Corpuscular Hemoglobin 30 pg (26-34); Mean Corpuscular Volume 90 fL (80-100); RDW Coefficient of Variation % 12.4 % (11.5-15.5); Red Blood Count* 4.07 m/uL (4.00-5.20); White Blood Count* 9.65 K/uL (4.50-11.00)
[2025-05-29 22:29] LABS: Slide Review Reflex No
[2025-05-29 22:33] LABS: Chloride* 105 mmol/L (96-114)
[2025-05-29 22:34] LABS: Potassium* 3.5 mmol/L (3.6-5.1); Sodium* 132 mmol/L (135-149)
[2025-05-29 22:36] LABS: Blood Urea Nitrogen* 11 mg/dL (5-24); Creatinine* 0.6 mg/dL (0.5-1.5); Est. Creatinine Clearance* 92.21; Estimated Glomerular Filt Rate 118 ml/min
[2025-05-29 22:37] LABS: Anion Gap 6 mEq/L (7-15); Calcium* 8.7 mg/dL (8.4-10.6); Carbon Dioxide* 21 mmol/L (20-32); Glucose* 116 mg/dL (60-115)
[2025-05-29 22:51] LABS: Appearance Urine Slightly Cloudy (Clear)
[2025-05-29 23:00] VITALS: BP 135/74; PULSE 70; RESP 18; TEMP 36.7; O2SAT 100
[2025-05-29 23:02] LABS: Ur HCG Qualitative* POSITIVE (Negative)
[2025-05-30] MEDS: DOCUSATE SODIUM 100 MG CAPSULE 200 MG PO (00:27)
[2025-05-30 00:31] VITALS: BP 138/84; PULSE 75; RESP 18; TEMP 36.7; O2SAT 100
== END 2025-05-30 00:32 | disposition home or self-care (01) ==
PROVIDERS: Emergency Provider Family Medicine
DX: R10.31 Right lower quadrant pain (principal); Z3A.01 Less than 8 weeks gestation of pregnancy
CPT/HCPCS: 36415; 76705; 76817; 80048; 81001; 81003; 81025; 84702; 85025; 87086; 93976; 99284; A9270